=== PATIENT | female | born 1960 | race Caucasian/White ===

== ENCOUNTER 2025-04-26 09:45 | Outpatient (AMB) | payer BC, SELFPAY ==
--- NOTE | 2025-04-26 09:51 | MHC.PC.OV ---
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 Intake Note: New patient visit Marketing Operations Associate Required: No Allergies No Known Allergies Allergy (Verified 04/26/25 09:52) Tobacco use date assessed: 04/26/25 Dental Screening Dental Screen Date: 04/26/25 Did you have a dental visit in the last 12 months?: Yes Did you have a dental problem in the last 6 months where you did not have access to dental care?: No Was dental information given to patient?: Patient has dentist HPI HPI Comments History of Present Illness Details 64 year old female with no significant past medical history presenting to [facility]. Transferring from [facility]. MSK: Bilateral hand arthritis. left cmc. declines referral Follows with vascular and has had venous procedures. Mammo: due Due for colon cancer screening She has history of total hysterectomy unilateral oopherectomy ROS CONSTITUTIONAL: Denies weight loss, fever and chills. HEENT: Denies changes in vision and hearing. RESPIRATORY: Denies SOB and cough. CV: Denies palpitations and CP GI: Denies abdominal pain, nausea, vomiting and diarrhea. : Denies dysuria and urinary frequency. MSK: Denies new myalgia and joint pain. SKIN: Denies rash and pruritus. NEUROLOGICAL: Denies headache PSYCHIATRIC: Denies recent changes in mood. PHYSICAL EXAM: GENERAL: Alert and oriented x 3. NAD EYES: EOMI. Anicteric. HENT: Moist mucous membranes. No scleral icterus. No cervical lymphadenopathy. LUNGS: Clear to auscultation bilaterally. CARDIOVASCULAR: Regular rate and rhythm. No murmur. No JVD. ABDOMEN: Soft, non-tender +bs EXTREMITIES: No edema. Non-tender. SKIN: No rashes or lesions. Warm. NEUROLOGIC: No focal neurological deficits. CN II-XII grossly intact PSYCHIATRIC: Cooperative. Appropriate mood and affect [facility] Surgical History H/O: hysterectomy Family History Father HTN (hypertension) Cardiovascular disease Social History Housing: House Alcohol intake: current Patient Tobacco Use Status: Current someday Tobacco user (Smokes off and on) Tobacco use type: Cigarette Years Smoked: Unsure e-Cigarette/Vaping Use: Never Used Second Hand Smoke Exposure: No service: No Current occupational status: employed and retired Cognitive needs: No Hearing needs: No Vision needs: No Physical exam (Primary Care) Vital Signs: Last Vital Signs Temp 98.3 F 04/26/25 09:56 Pulse 56 04/26/25 09:56 Resp 14 04/26/25 09:56 BP 112/74 04/26/25 09:56 Pulse Ox 98 04/26/25 09:56 Oxygen Delivery Method Room Air 04/26/25 09:56 BMI result Body Mass Index 27.3 Tobacco/Smoking Status: Tobacco use Status Tobacco use date assessed 04/26/25 04/26/25 09:54 Patient Tobacco Use Status Current someday Tobacco ( 04/26/25 10:18 Smokes off and on) Tobacco use type Cigarette 04/26/25 10:18 e-Cigarette/Vaping Use Never Used 04/26/25 10:18 Coding Level of Care Code New Pt Level 3 (65531) Complex EM visit Add On G2211 Diagnoses CMC arthritis M19.049 Varicose veins of both lower extremities without ulcer or inflammation I83.93 Assessment & Plan Assessment & Plan (1) CMC arthritis: Code(s): M19.049 - Primary osteoarthritis, unspecified hand Category: Medical (2) Varicose veins of both lower extremities without ulcer or inflammation: Code(s): I83.93 - Asymptomatic varicose veins of bilateral lower extremities Category: Medical Plan 64 year old to establish care past medical, surgical, social reviewed Varicositis-continue vascular follow up OA-stable conservative management Mammo ordered, referral GI puma Orders: Orders Hemoglobin A1c Today R35.89 - Other polyuria Complete Blood Count Auto Diff Today Z13.0 - Encounter for screening for diseases of the blood and blood-forming organs and certain disorders involving the immune mechanism, Z13.220 - Encounter for screening for lipoid disorders, Z13.228 - Encounter for screening for other metabolic disorders Comprehensive Met. Panel Today Z13.0 - Encounter for screening for diseases of the blood and blood-forming organs and certain disorders involving the immune mechanism, Z13.220 - Encounter for screening for lipoid disorders, Z13.228 - Encounter for screening for other metabolic disorders Lipid Panel Today Z13.0 - Encounter for screening for diseases of the blood and blood-forming organs and certain disorders involving the immune mechanism, Z13.220 - Encounter for screening for lipoid disorders, Z13.228 - Encounter for screening for other metabolic disorders TSH reflex Free T4 Today Z13.0 - Encounter for screening for diseases of the blood and blood-forming organs and certain disorders involving the immune mechanism, Z13.220 - Encounter for screening for lipoid disorders, Z13.228 - Encounter for screening for other metabolic disorders MM tomosynthesis screening BI Today Z12.31 - Encounter for screening mammogram for malignant neoplasm of breast Referrals Gastroenterology Referral Z12.11 - Encounter for screening for malignant neoplasm of colon
[2025-04-26 09:56] VITALS: BP 112/74; PULSE 56; RESP 14; TEMP 36.8; O2SAT 98; BMI 27.3
--- OUTSIDE RECORDS SUMMARY | 2025-04-26 10:43 | XMS_ITS ---
Author Name [facility] Organization Unknown Care Team Organization Name Specialty Phone Email Start Date End [facility] Roman Knight DO Primary Care 08/07/202204/30
--- OUTSIDE RECORDS SUMMARY | 2025-04-26 10:43 | XMS_ITS | Clinical Summary ---
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 Portable Name Role Phone Roman Knight DO Primary Care Provider [phone] Surgical History Surgery Date Site/Laterality Comments OTHER SURGICAL HISTORY PROCEDURE: UT TOTAL ABDOMINAL HYSTERECT W/WO RMVL TUBE OVARY; COMMENT: JURGEN,LSO LEIOMYOMATA ADENOMYOSIS, HYDROSALPINX SALPINGOOPHORECTOMY PROCEDURE: UT LAPAROSCOPY W/RMVL ADNEXAL STRUCTURES OTHER SURGICAL HISTORY 2012 PROCEDURE: ---- OTHER ----; COMMENT: lkeft leg vein ablation Medical History Medical History Date Comments Tobacco use disorder DX:Tobacco use disorder Fatty liver 02/05/2024 DX:Fatty liver; COMMENT: Ultrasound 02/20 Family History Medical History Relation Name Comments Heart attack Brother 1 Other: car accident Brother 2 Coronary artery disease Father Other: heart attack decd Father Other cancer Maternal Grandfather Other cancer Maternal Grandmother Other: stomach cancer Maternal Grandmother Heart failure Mother Breast cancer Other p cousin 30s Other cancer Paternal Grandfather Other cancer Paternal Grandmother Breast cancer Sister 1 lumpectomy-per pt-PET scan had no uptake to suggest stomach ca at that time Hypertension Sister 1 Stomach cancer Sister 1 stage 4 at dx Other: diverticulitis Sister 2 Genny Other: leiomyoma Sister 2 Genny Other: parathyroid Sister 2 Genny Colon cancer Neg Hx Ovarian cancer Neg Hx Relation Name Status Comments Brother 1 (Age 49) Brother 2 Father (Age 59) massive [place] , HTN, untreated CAD Maternal Grandfather Maternal Grandmother Mother (Age 92) thyroid Other p cousin 30s Paternal Grandfather Paternal Grandmother Sister 1 Alive dx breast ca ag e 61 Sister 2 Genny Alive Social History Tobacco Use Types Packs/Day Years Used Date Smoking Tobacco: Some Days Cigarettes Smokeless Tobacco: Never Alcohol Use Standard Drinks/Week Comments Yes 0 (1 standard drink = 0.6 oz pur e alcohol) Comments No Sex and Gender Information Value Date Recorded Sex Assigned at Not on file Legal Sex Female 6:36 AM EST Gender Identity Not on file Sexual Orientation Not on file Obstetrics History Para Term AB IAB SAB Ectopic Multiple Livin g Live Births 0 0 0 0 Last Filed Vital Signs Vital Sign Reading Time Taken Comments Blood Pressure 132/73 01/23/2024 9:59 AM EDT Pulse 91 01/23/2024 9:59 AM EDT Temperature - - Respiratory Rate - - Oxygen Saturation - - Inhaled Oxygen Concentration - - Weight 74.4 kg (164 lb 1.6 oz) 01/23/2024 9:59 A M EDT Height 165.1 cm (5' 5 ) 01/23/2024 9:59 AM EDT Body Mass Index 27.31 01/23/2024 9:59 AM EDT Plan of Treatment Upcoming Encounters Date Type Department Care Team (Late st Contact Info) Description 01/20/2026 2:20 PM EDT Appointment Radiology Department [address] [phone] Health Maintenance Due Date Last Done Comments Hepatitis A Vaccines (1 of 2 - Risk 2-dose series) 1981 Pneumococcal Vaccine: 50+ Years (1 of 2 - PCV) 1981 Zoster Vaccines (1 of 2) 2012 Hepatitis B Vaccines (1 of 3 - Risk 3-dose series) 2022 RSV Immunization Adult Patients (1 - Risk 60-74 years 1-dose series) 2022 Cholesterol Screening (Lipid Panel) 09/08/2022 HIV Screening 09/08/2022 Hepatitis C Screening 09/08/2022 Social Influencers of Health Screening 09/08/2022 COVID-19 Vaccine ( - season) 2024 Depression Screening 09/30/2024 Colorectal Cancer Screening: Colonoscopy 03/04/2025 Influenza Vaccine (#1) 2025 Breast Cancer Screening 01/13/2027 01/14/20 25, 01/01/2024, 12/26/2022, Additional history exists DTaP,Tdap,and Td Vaccines (4 - Td or Tdap) 10/12/2031 10/12/2021, 09/13/2009, 06/20/2001 HIB Vaccines Aged Out No longer eligi ble based on patient's age to complete this topic HPV Vaccines Aged Out No longer eligi ble based on patient's age to complete this topic IPV Vaccines Aged Out No longer eligi ble based on patient's age to complete this topic MMR Vaccines Aged Out No longer eligi ble based on patient's age to complete this topic Meningococcal ACWY Vaccine Aged Out N o longer eligible based on patient's age to complete this topic Meningococcal B Vaccine Aged Out No l onger eligible based on patient's age to complete this topic RSV Immunization Patients Under 20 months Aged Out No longer eligible based on patient's age to complete this topic Varicella Vaccines Aged Out No longer eligible based on patient's age to complete this topic Procedures Procedure Name Priority Date/Time Associated Diagnosis Comments MG MAMMO DIGITAL SCREENING W GIANLUCA BILAT Routine 01/13/2025 2:20 PM EDT Encounter for screening mammogram for breast cancer from Last 3 Months or Most Recently Relevant to Health Maintenance Results * MG Mammo Digital Screening w Gianluca bilat (01/13/2025 2:20 PM EDT) Anatomical Region Laterality Modality Breast Bilateral Mammography 01/14/2025 8:14 AM EDT Impressions 01/14/2025 8:14 AM EDT No mammographic evidence of malignancy. BREAST DENSITY: B - There are scattered areas of fibroglandular density. BI-RADS CATEGORY: 1 - NEGATIVE RECOMMENDATION: Screening bilateral mammogram is recommended in 1 year. MAMMO LOCATION: [facility], [address] [place] [address], [id number], . -------- FINAL REPORT -------- Dictated By: Hyun Schmitt Dictated Date: 01/14/2025 08:14 ET Assigned Physician: Hyun Schmitt Reviewed and Electronically Signed By: Hyun Schmitt Signed Date: 01/14/2025 08:14 ET Workstation ID: [id number] Transcribed By: Self Edit Transcribed Date: 01/14/2025 08:14 ET Narrative 01/14/2025 8:14 AM EDT EXAM: Screening Mammogram CLINICAL: 64 years old, Female, routine annual exam. COMPARISON: 01/01/2024 and as far back as 08/27/2020 TECHNIQUE: Bilateral MLO and CC views were obtained digitally with 3-D mammogram (digital breast tomosynthesis). Computer-aided detection was utilized in evaluation of this exam (CAD). FINDINGS: No new suspicious mass, architectural distortion, or suspicious calcifications. Procedure Note Hyun Schmitt MD - 01/14/2025 EXAM: Screening Mammogram CLINICAL: 64 years old, Female, routine annual exam. COMPARISON: 01/01/2024 and as far back as 08/27/2020 TECHNIQUE: Bilateral MLO and CC views were obtained digitally with 3-Dmammogram (digital breast tomosynthesis). Computer-aided detection wasutilized in evaluation of this exam (CAD). FINDINGS: No new suspicious mass, architectural distortion, or suspiciouscalcifications. IMPRESSION: No mammographic evidence of malignancy. BREAST DENSITY: B - There are scattered areas of fibroglandular density. BI-RADS CATEGORY: 1 - NEGATIVE RECOMMENDATION: Screening bilateral mammogram is recommended in 1 year. MAMMO LOCATION: [facility], [address] [place] [address], [phone], . -------- FINAL REPORT -------- Dictated By: Hyun Schmitt Dictated Date: 01/14/2025 08:14 ET Assigned Physician: Hyun Schmitt Reviewed and Electronically Signed By: Hyun Schmitt Signed Date: 01/14/2025 08:14 ET Workstation ID: [id number] Transcribed By: Self Edit Transcribed Date: 01/14/2025 08:14 ET Roman Knight DO IMG BI PROCEDURES Final Result from Last 3 Months or Most Recently Relevant to Health Maintenance Insurance [facility] Care Teams Compressor Operator Portable Relationship Specialty Start Date End Date Roman Knight DO [address] [place] [address] PCP - General Internal Medicine 01/18/22
== END 2025-04-26 10:38 | disposition home or self-care (01) ==
LOC: HO.HMCFM 09:46
PROVIDERS: PCP Internal Medicine; Visit Provider Internal Medicine
DX: M19.049 Primary osteoarthritis, unspecified hand (principal); I83.93 Asymptomatic varicose veins of bilateral lower extremities